=== PATIENT | male | born 1995 | race Caucasian/White ===

== ENCOUNTER 2016-09-16 23:07 | Emergency (ER) | payer SELFPAY ==
[~2016-09-16] VITALS: Ht 188 cm; Wt 68.2 kg
[2016-09-16 23:09] VITALS: BP 116/59; TEMP 97.8
[2016-09-16] MEDS ORDERED: ULTRAM 50MG TAB50 MG PO (23:29)
[2016-09-16] MEDS ORDERED: PERCOCET 325 MG1 TA2 PO (23:29)
[2016-09-17 01:00] VITALS: PULSE 67
== END 2016-09-17 01:00 | disposition home or self-care (01) ==
LOC: COL.ER 23:07
DX: S99.822A Other specified injuries of left foot, initial encounter (principal); W22.8XXA Striking against or struck by other objects, initial encounter; Y92.89 Other specified places as the place of occurrence of the external cause